=== PATIENT | female | born 1990 | race Caucasian/White ===

== ENCOUNTER 2022-08-11 13:51 | Observation (INO) | payer SELFPAY ==
[~2022-08-11] VITALS: Ht 157.5 cm; Wt 105.0 kg
[2022-08-11 15:33] LABS: COLLECTION METHOD CLEAN CATCH
[2022-08-11 15:45] LABS: URINE APPEARANCE Hazy (CLEAR/HAZY); URINE BLOOD TRACE-INTACT (NEGATIVE); URINE COLOR Amber (YELLOW); URINE GLUCOSE Negative (NEGATIVE); URINE KETONE TRACE (NEGATIVE); URINE NITRATE Negative (NEGATIVE); URINE PROTEIN(semi-quant) 1+ (NEGATIVE)
[2022-08-11 15:47] LABS: MUCOUS Present (NOT PRESENT); URINE BACTERIA None Seen /hpf (NONE SEEN)
[2022-08-11 16:32] LABS: BASO # 0.1 K/mm3 (0.0-0.2); BASO % 0.6 % (0.0-2.0); EOS # 0.1 K/mm3 (0.0-0.7); EOS % 1.1 % (0.0-4.0); GRAN # 5.3 K/mm3 (1.4-6.5); GRAN % 64.3 % (42.2-75.2); HEMATOCRIT 43.8 % (37.0-47.0); HEMOGLOBIN 14.8 g/dl (12.5-16.0); LYMPH # 2.3 K/mm3 (1.2-3.4); LYMPH % 27.3 % (20.0-51.0); MEAN CELL VOLUME 91 fl (80.0-100.0); MEAN CORPUSCULAR HEMOGLOBIN 31 pg (27-31); MEAN CORPUSCULAR HGB CONC 34 g/dl (33.0-37.0); MEAN PLATELET VOLUME 10.6 fl (7.4-10.4); MONO # 0.5 K/mm3 (0.1-0.6); MONO % 6.2 % (1.7-9.3); PLATELET COUNT 285 K/mm3 (130-400); REDCELL DISTRIBUTION WIDTH-CV 12.7 % (11.5-14.5)
[2022-08-11 17:12] LABS: ALBUMIN 4.3 gm/dL (3.5-5.0); BILIRUBIN,TOTAL 2.6 mg/dL (0.2-1.2); C-REACTIVE PROTEIN 1.14 mg/dL (0.00-0.50); CALCIUM 10.3 mg/dL (8.4-10.2); CREATININE, serum 0.88 mg/dL (0.57-1.11); POTASSIUM 3.8 mmol/L (3.5-4.5); TOTAL PROTEIN 8.6 gm/dL (6.2-8.1)
[2022-08-11 21:07] VITALS: BP 135/63; PULSE 91; TEMP 98.1
--- NOTE | 2022-08-11 21:10 | NUR ---
PT ARRIVES TO UNIT VIA W/C. IS INDEPENDENT IN ROOM. IS ALERT AND ORIENTED X4. HAS INT TO RAC. DENIES PAIN AT THIS TIME. HAD MORPHINE IN THE ED.
--- NOTE | 2022-08-11 22:28 | NUR ---
PT MEDICATED WITH MORPHINE 2MG IVP AFTER SIGNING CONSENT FOR SURGERY IN AM. CONNECTED TO IVF, INFUSING WITHOUT REDNESS OR SWELLING. WILL BE NPO AFTER MIDNIGHT, PT AWARE.
[2022-08-11 23:59] VITALS: BP 124/65; PULSE 65; TEMP 98.4
[2022-08-12] VITALS (13 sets, daily range): BP systolic 98–124; BP diastolic 51–87; PULSE 49–81; TEMP 98.2–98.7
[2022-08-12] MEDS ORDERED: PRILOTC PO (00:03)
[2022-08-12] MEDS ORDERED: DEPO-PROVER150 MG/M1 IM (00:03)
--- NOTE | 2022-08-12 02:31 | NUR ---
PT REPORTS N/V, MEDICATED WITH ZOFRAN 4MG IVP NOW. IS NPO FOR SURGERY AT 0800.
--- NOTE | 2022-08-12 07:35 | NUR ---
Pt to sx via bed.
--- NOTE | 2022-08-12 09:25 | NUR ---
Pt returns from PACU to room 343 via bed. Is A&O x 4 but still drowsy. BP soft, 90-100's, but stable. Reports pain to RUQ abdomen 5/10. BS x 4, not passing gas yet. Lap site x 3 CDI with bandaids. Denies nausea at this time, scope patch behind R ear. Encourage pt to start with water/ice then adv diet ATOL. Also instruct that once she is more awake, she will be encouraged to ambulate to assist with gas pain. at bedside.
[2022-08-12 10:46] LABS: ALBUMIN 3.4 gm/dL (3.5-5.0); BILIRUBIN,DIRECT 0.7 mg/dL (0.0-0.5); BILIRUBIN,TOTAL 1.3 mg/dL (0.2-1.2); TOTAL PROTEIN 6.4 gm/dL (6.2-8.1)
--- NOTE | 2022-08-12 11:38 | NUR ---
Pt resting comfortably between cares. HR drops to upper 40's-50's while sleeping. Rebounds into 70's when awake.
--- NOTE | 2022-08-12 14:08 | NUR ---
Pt pain to abdomen continues 08/25. Reports no BM, has started passing gas. Has been up to ambulate x [address] VSS, afebrile, abdomen soft with pain to RUQ. Get pt warm blanket and assist to reposition using pillows for support. Pt awaiting lunch tray.
[2022-08-12] MEDS ORDERED: NORCO 325 MG-51 TAB PO (17:03)
--- NOTE | 2022-08-12 17:42 | NUR ---
Lap sites x 3 to RUQ abdomen CDI, bandaids remain in place, no drainage noted. Abdomen soft and semetrical. Tenderness to medial RUQ noted with palpation. No discoloration noted. Discussed d/c instructions with pt and spouse. Both acknowledge understanding. Pt will make f/u appt with Dr. Cui. Last dose [place] time/date noted on d/c ppw. IV d/c complete/intact. Pt/spouse pack belongings and both escorted from facility by staff.
== END 2022-08-12 17:42 | disposition home or self-care (01) ==
LOC: COL.ER 13:51 → EDBD 13:52 → SURG 19:36
PROVIDERS: Nurse Practitioner; ADMIT Surgery
DX: K80.10 Calculus of gallbladder with chronic cholecystitis without obstruction (principal); R79.89 Other specified abnormal findings of blood chemistry; K66.0 Peritoneal adhesions (postprocedural) (postinfection); R17 Unspecified jaundice
CPT/HCPCS: G0378; J0360; J0690; J1100; J1170; J1885; J2270; J2405; J2550; J2704; J3010; J7030; J7120; Q9967